=== PATIENT | female | born 1945 | race Caucasian/White ===

== ENCOUNTER → 2017-04-18 | Outpatient (CLI) | payer OTHER, MEDICARE ==
[~2017-04-18] MED LIST: ACTIGALL300 MG PO; AMOXIL 875 MG875 M1 PO; B-122500 MC1 PO; CARAFATE 1 GM TA1 GM PO; CETAPHIL473 ML; CLONAZEPAM 0.50.5 M1 PO; CO Q-10100 MG PO; COLACE 100 MG100 MG PO; LASIX 40 MG TAB40 M1 PO; LEVOXYL88 MCG PO; LYRICA 75 MG CA75 MG PO; MOM PO; MUCINEX600 MG PO; OXYCODONE HCL 55 MG PO; POTASSIUM20 PO; PROBIOTIC1 EAC1 PO; PROTONIX40 M2 PO; SYNTHROID88 MCG PO; TRAZODONE PO; TRIAMCINOLONE A80 G2; VITAMIN D-32000 UNIT PO; XOPENEX0.63 MG/3 INH; ZOFRAN ODT4 MG PO; ZOLOFT100 MG PO; ZYPREXA2.5 MG PO
== END ==
LOC: RAD 08:43
DX: R06.00 Dyspnea, unspecified (principal); R91.8 Other nonspecific abnormal finding of lung field; M47.894 Other spondylosis, thoracic region